=== PATIENT | male | born 1990 | race American Indian/Alaskan Native ===

== ENCOUNTER 2019-12-04 17:46 | Emergency (ER) | payer SELFPAY ==
--- NOTE | 2019-12-04 18:08 | Emergency Department Report ---
Blank Doc - Documentation Documentation: 29-year-old male that presents with nausea and dizziness. Denies any pain or injuries. This initial assessment/diagnostic orders/clinical plan/treatment(s) is/are subject to change based on patient's health status, clinical progression and re- assessment by fellow clinical providers in the ED. Further treatment and workup at subsequent clinical providers discretion. Patient/guardians urged not to elope from the ED as their condition may be serious if not clinically assessed and managed. Initial orders include: 1- Patient sent to [facility] for further evaluation and treatment 2- labs 3- orthostatic vitals 4- UA
[2019-12-04 18:15] VITALS: BP 131/82
[2019-12-04 19:14] LABS: Basophils % (Auto) 0.3 % (0.0-1.8); Eosinophils % (Auto) 0.2 % (0.0-4.3); Hematocrit 47.4 % (35.5-45.6); Hemoglobin 15.9 gm/dl (11.8-15.2); Lymphocytes # (Auto) 1.4 K/mm3 (1.2-5.4); Lymphocytes % (Auto) 11.8 % (13.4-35.0); Mean Corpuscular HGB Conc 34 % (32-34); Mean Corpuscular Volume 95 fl (84-94); Monocytes # (Auto) 0.5 K/mm3 (0.0-0.8); Monocytes % (Auto) 4.1 % (0.0-7.3); Platelet Count 216 K/mm3 (140-440); Red Blood Count 4.99 M/mm3 (3.65-5.03); Red Cell Distribution Width 13.2 % (13.2-15.2)
[2019-12-04 19:24] LABS: BUN/Creatinine Ratio 11; Blood Urea Nitrogen 14 mg/dL (9-20); Calcium 9.6 mg/dL (8.4-10.2); Hemolysis Index 13
[2019-12-04 19:54] LABS: Bilirubin,Urine NEG (Negative); Blood,Urine NEG (Negative); Color,Urine Yellow (Yellow); Mucus,Urine 3+ /HPF
--- NOTE | 2019-12-04 20:16 | Emergency Department Report ---
ED Abdominal Pain HPI - General Chief Complaint: Dizziness Stated Complaint: LIGHT HEADED/NAUSEA Time Seen by Provider: 12/04/19 18:07 Source: patient Mode of arrival: Ambulatory Limitations: No Limitations - History of Present Illness Initial Comments: Mr. Coy is a pleasant 29 years old male with no significant past medical history. Patient presented to the ER complaining of sudden onset of diffuse abdominal pain, nausea and diarrhea. Patient stated that this is happened few hours after he ate his lunch at work. Patient describes his diarrhea as just loose and watery stool. Patient stated that he still nauseated but no vomiting. Patient denied any fever or chills. Patient denied any chest pain or shortness of breath. Patient stated that his abdominal pain completely resolved now. MD Complaint: abdominal pain -: This afternoon Location: diffuse Radiation: none Migration to: no migration Severity scale (0 -10): 0 Quality: cramping Consistency: now resolved Context: possible food poisoning - Related Data Allergies Allergy/AdvReac Type Severity Reaction Status Date / Time No Known Allergies Allergy Unverified 12/04/19 18:17 ED Review of Systems ROS: Stated complaint: LIGHT HEADED/NAUSEA Other details as noted in HPI Comment: All other systems reviewed and negative Constitutional: denies: chills, fever Respiratory: denies: cough, shortness of breath, SOB with exertion Cardiovascular: denies: chest pain, palpitations Gastrointestinal: abdominal pain, nausea, vomiting, diarrhea Musculoskeletal: denies: back pain Neurological: denies: headache, weakness, numbness, paresthesias, confusion ED Past Medical Hx - Past Medical History Previous Medical History?: No - Surgical History Past Surgical History?: No - Social History Smoking Status: Never Smoker Substance Use Type: None ED Physical Exam - General Limitations: No Limitations General appearance: alert, in no apparent distress - Head Head exam: Present: atraumatic, normocephalic, normal inspection - Eye Eye exam: Present: normal appearance - ENT ENT exam: Present: normal exam, normal orophraynx, mucous membranes moist - Neck Neck exam: Present: normal inspection, full ROM. Absent: tenderness, meningismus, lymphadenopathy, thyromegaly - Respiratory Respiratory exam: Present: normal lung sounds bilaterally - Cardiovascular Cardiovascular Exam: Present: regular rate, normal rhythm, normal heart sounds - GI/Abdominal GI/Abdominal exam: Present: soft, normal bowel sounds. Absent: distended, tenderness, guarding, rebound, rigid, diminished bowel sounds, organomegaly, mass, bruit, pulsatile mass, hernia - Extremities Exam Extremities exam: Present: normal inspection, full ROM, normal capillary refill. Absent: tenderness, pedal edema, joint swelling, calf tenderness - Back Exam Back exam: Present: normal inspection, full ROM. Absent: CVA tenderness (R), CVA tenderness (L) - Neurological Exam Neurological exam: Present: alert, oriented X3, CN II-XII intact, normal gait, reflexes normal. Absent: motor sensory deficit - Psychiatric Psychiatric exam: Present: normal mood - Skin Skin exam: Present: warm, intact, normal color ED Course Vital Signs 12/04/19 18:10 Temperature 97.9 F Pulse Rate 73 Respiratory 16 Rate Blood Pressure 131/82 Blood Pressure 131/82 [Left] O2 Sat by Pulse 100 Oximetry ED Medical Decision Making - Lab Data Result diagrams: 12/04/19 18:23 12/04/19 18:23 - Medical Decision Making Mr. Coy is a pleasant 29 years old male with no significant past medical history. Patient presented to the ER complaining of sudden onset of diffuse abdominal pain, nausea and diarrhea. Patient stated that this is happened few hours after he ate his lunch at work. Patient describes his diarrhea as just loose and watery stool. Patient stated that he still nauseated but no vomiting. Patient denied any fever or chills. Patient denied any chest pain or shortness of breath. Patient stated that his abdominal pain completely resolved now. Labs reviewed and showed slightly evaded white blood cells however patient abdomen is soft, nontender and no evidence of acute abdomen. Negative McBurney sign. I believe patient symptom is most likely related to food poisoning given the nausea vomiting and diarrhea. Patient is abdominal pain-free now. Patient given prescription for Zofran and advised to follow-up with his primary doctor in the next 2 to 3 days and to return to the ER if symptoms get worse. Critical care attestation.: If time is entered above; I have spent that time in minutes in the direct care of this critically ill patient, excluding procedure time. ED Disposition Clinical Impression: Abdominal pain, Nausea vomiting and diarrhea Disposition: - TO HOME OR SELFCARE Is pt being admited?: No Condition: Stable Instructions: Acute Nausea and Vomiting (ED), Abdominal Pain (ED) Referrals: [facility] [Provider Group] - 3-5 Days
== END 2019-12-04 20:18 | disposition home or self-care (01) ==
LOC: ED 17:46
DX: R11.2 Nausea with vomiting, unspecified (principal); R19.7 Diarrhea, unspecified; R10.9 Unspecified abdominal pain
CPT/HCPCS: 36415; 80048; 81001; 85025; 99283